=== PATIENT | male | born 1940 | race Caucasian/White ===

== ENCOUNTER → 2023-10-12 14:05 | Outpatient (REF) | payer OTHER, SELFPAY | LOC: RAD 14:05 | PROVIDERS: ATTENDING PHYSICIAN Internal Medicine Critical Care Medicine; FAMILY PHYSICIAN Family Medicine | DX: J18.9 Pneumonia, unspecified organism (principal) | CPT/HCPCS: 71046 ==

== ENCOUNTER → 2023-11-01 11:09 | Outpatient (REF) | payer OTHER, SELFPAY | LOC: RAD 11:09 | PROVIDERS: ATTENDING PHYSICIAN Surgery Vascular Surgery; FAMILY PHYSICIAN Family Medicine | DX: I65.23 Occlusion and stenosis of bilateral carotid arteries (principal) | CPT/HCPCS: 93880 ==

== ENCOUNTER 2023-11-24 15:01 | Inpatient (IN) | payer OTHER, SELFPAY ==
[2023-11-08 13:19] VITALS: BMI 26.1
[2023-11-08 13:59] LABS: % Basophils 0.3 % (0-2); % Eosinophils 1.3 % (0-6); % Immature Granulocytes 0.2 % (0-0.5); % Lymphocytes 16.1 % (20.5-51.1); % Monocytes 7.4 % (1.7-9.3); % Neutrophils 74.7 % (42.2-75.2); Absolute Eosinophils 0.1 10^3/uL (0-0.7); Absolute Monocytes 0.4 10^3/uL (0.1-0.6); Absolute Neutrophils 4.5 10^3/uL (1.4-6.5); Hematocrit 39.1 % (39.0-52.0); Hemoglobin 13.1 g/dL (13.0-18.0); Mean Corp Hgb Conc. 33.5 g/dL (33.0-37.0); Mean Corpuscular Hgb 31.8 pg (27.0-31.0); Mean Corpuscular Volume 94.9 fL (80.0-94.0); Mean Platelet Volume 9.7 fL (7.4-10.4); Nucleated Red Blood Cells % 0 % (-); Platelet Count 180 10^3/uL (130-400); Red Blood Cell Count 4.12 10^6/uL (4.70-6.10)
[2023-11-08 14:11] LABS: ALT (SGPT) 38 U/L (0-50); AST (SGOT) 36 U/L (17-59); Albumin 4.9 g/dl (3.5-5.0); Alkaline Phosphatase 98 U/L (38-126); Blood Urea Nitrogen 19 mg/dl (9-20); Carbon Dioxide 26 mmol/L (22-30); Chloride 104 mmol/L (98-107); Estimated Creatinine Clearance 56 ml/min; Glucose 97 mg/dl (70-99); Potassium 4.3 mmol/L (3.5-5.1); Sodium 137 mmol/L (135-145); Total Bilirubin 1.7 mg/dl (0.2-1.3); Total Protein 7.3 g/dl (6.3-8.2); eGFR > 60.00
[2023-11-08 14:31] LABS: INR 1.11; PT 14.1 Sec (11.4-14.6)
[2023-11-24 09:06] VITALS: BMI 26.5
[2023-11-24 09:33] VITALS: BP 147/94
[2023-11-24] MEDS: ELIQUIS 5 MG PO ×2 (11:28→20:28)
--- NOTE | 2023-11-24 12:21 | HPS.HSE ---
Addendum entered and electronically signed by Alecia Mendoza MD 11/24/23 15:25:
I saw and examined the patient.
The MANAGER IT TRAINING or PA's note was reviewed and I agree with the note.
Comment:
83M ext hx including HTN, HLD, COPD PVD, status post PRABHJOT and LICA stent at [facility] 2007, right subclavian stenosis, carotid stenosis, chronic lower back pain, hypothyroidism, head and neck/laryngeal cancer with laryngectomy/trach/stoma, claustrophobia,
right retinal vein thrombosis/branch retinal artery occlusion 2013, former smoker, vitamin D deficiency, anxiety aflutter/A-fib presented for elective ablation, canceled per anesthesia assessment high risk history of laryngeal CA/laryngectomy, stoma
anatomy. �Patient was subsequently admitted to hospitalist service with Cardiology plans for amiodarone load and possible cardioversion on 11/26/2023. �Denied current headache, chest pain, fever, chills, and abdomen pain.� Reported exertional
dyspnea palpitations chronic cough. VSS
Physical Exam
General: No pallor, cyanosis, or jaundice.
HEENT: Throat clear. PERRLA Normocephalic atraumatic stoma present
NECK: Supple. No JVD Carotid Bruits
RESPIRATORY: Lungs clear to auscultation. No crackles wheezes stridor
CVS: S1, S2 normal. RRR.� No murmur, rub or gallop.
ABDOMEN: Soft, non-tender. No distension. BS+/normal.
EXTREMITIES: No peripheral cyanosis or edema.
EXHIBITION DESIGNER: AOx3. No focal deficits.� Nausea, vomiting, diarrhea, urinary symptoms. Reports exertional dyspnea and palpitations.
#Afib
#COPD hx laryngeal ca laryngectomy/tracheostomy/stoma/voic device
#exertional dyspnea
IVU admit
Amiodarone load as per Cardio
Cont Eliquis
Tentative plan for Cardioversion Fri
Pulm Cardio Eval
PT/OT eval
Original Note:
Family Physician
-
Family Physician: Yao Nguyen Jr.
Chief Complaint
-
A-fib a flutter was due for cardioversion today
History of Present Illness
83-year-old male who was due for a flutter/A-fib ablation today but was not cleared by anesthesia due to history of laryngeal CA/laryngectomy, stoma. Cardiology to admit for amiodarone load with plan of possible cardioversion on 11/26/2023.
Patient denies any current headache, chest pain, palpitations, shortness of breath, cough, fever, chills, abdominal pain, nausea, vomiting, diarrhea, urinary symptoms
He has PMH persistent A-fib/a flutter, HTN, HLD, COPD PVD ,status post PRABHJOT and LICA stent at [facility] 2007, right subclavian stenosis, carotid stenosis, chronic lower back pain, hypothyroidism, head and neck/laryngeal cancer with
laryngectomy/trach/stoma, claustrophobia, right retinal vein thrombosis/branch retinal artery occlusion 2013, former smoker, pneumonia July 2023, vitamin D deficiency, anxiety
Medical History
Past Medical History
Past Medical History: Reports Other (a)
Additional Past Medical History:
atrial fibrillation/a flutter on Eliquis
coronary disease
laryngeal cancer with laryngectomy/tracheostomy/stoma site/voice device
COPD
former smoker
peripheral arterial disease
carotid artery stenosis
hypothyroidism
chronic back pain
hyperlipidemia
insomnia
Anxiety
Vitamin D deficiency
ight retinal vein thrombosis/branch retinal artery occlusion 2013
Past Surgical History: Reports Other
Additional Past Surgical History:
laryngeal cancer with laryngectomy/tracheostomy/stoma site/voice device
status post PRABHJOT and LICA stent at [facility] 2007
ight retinal vein thrombosis/branch retinal artery occlusion 2013
Social History
Tobacco: Former Smoker
Alcohol: None
Drug: None
Personal:
Living: With Family ( [place])
Employment: Retired
Family History
Family History: CAD (Mother and father) and Other (Mother alcohol abuse of cirrhosis)
Allergies / Home Medications
Allergies reflects when Allergies were last updated in [facility].
Home Medications with original date entered in [facility]
Allergy/Medication List:
Allergies
Allergy/AdvReac Type Severity Reaction Status Date / Time
levofloxacin [From Levaquin] Allergy Rash Verified 11/24/23 09:02
penicillin G Allergy Rash - Verified 11/24/23 09:02
tolerated
cefepime
06/2023
Home Medications
levothyroxine 100 mcg tablet 100 mcg PO DAILY AT 0700 Thyroid 08/31/14
guaifenesin 400 mg tablet 400 mg PO QID Congestion 12/30/16
tramadol 50 mg tablet 50 mg PO Q6H Pain 06/14/20
atorvastatin 80 mg tablet 80 mg PO DAILY #30 tabs 06/15/20
therapeutic multivitamin 10 ml PO DAILY Supplement 05/20/23
cholecalciferol (vitamin D3) 125 mcg (5,000 unit) tablet (Vitamin D3) 125 mcg PO Q48H Supplement 06/24/23
metoprolol tartrate 25 mg tablet 12.5 mg (1/2 x 25 mg) PO BID #30 tabs 06/30/23
acetaminophen 325 mg tablet (Tylenol) 650 mg PO BID 08/09/23
ferrous sulfate 325 mg (65 mg iron) tablet (iron) 325 mg PO DAILY Supplement 08/09/23
zolpidem 10 mg tablet (Ambien) 10 mg PO HS Sleep 08/09/23
albuterol sulfate 2.5 mg/3 mL (0.083 %) solution for nebulization 2.5 mg (3 mL) inhalation QID PRN bronchospasm #90 mL 08/13/23
apixaban 5 mg tablet (Eliquis) 5 mg PO BID Pain #60 tabs 08/13/23
docusate sodium 100 mg capsule (Colace) 100 mg PO PRN PRN constipation 08/26/23
diazepam 10 mg tablet (Valium) 10 mg PO PRN PRN Anxiety 11/03/23
Review of Systems
-
History Source: Patient and Family ( [place] and daughter at bedside)
A 12 point ROS was completed and negative except as noted: Yes
Constitutional: Denies Fever, Fatigue or Chills
EENT: Denies Sore Throat or Runny Nose
Respiratory: Denies Cough or Trouble Breathing
Cardiac: Denies Chest Pain, Diaphoresis, Palpitations or Syncope
Abdomen/GI: Denies Abdominal Pain, Nausea, Vomiting, Diarrhea, Constipated, Bloody Stools or Black Stools
: Denies Dysuria, Frequency, Flank Pain, Incontinence, Difficulty Voiding or Urgency
Musculoskeletal: Denies Joint Pain or Edema
Skin: Denies Itching or Rash
Neurological: Denies Dizzy, Headache or Weakness
Endocrine: Reports No Symptoms
Hematologic/Lymphatic: Reports No Symptoms
Psych: Reports Calm
Physical Exam
Vital Signs
Vital Signs
Temp Pulse Resp BP Pulse Ox
98.0 F 78 20 147/94 96
11/24/23 09:06 11/24/23 09:33 11/24/23 09:33 11/24/23 09:33 11/24/23 09:33
Physical Exam
General: Comfortable and Conversant; No Pain, Fever or Chills
HEENT: NormoCephalic, Anicteric, Moist mucous membranes, PERRLA, [place] Conjunctivae, No Ptosis and Other (Chronic open stoma site uses voice device to speak)
Respiratory: Clear; No Wheezes, Rales or Rhonchi
Cardiac: S1/S2 and Irregular Rhythm (A-fib/a flutter heart rate 82 bpm on monitor); No Murmur, Rub, Gallop or Peripheral Edema
Breast: Deferred by me
GI: Soft, Non Tender, Non Distended, Normal Bowel Sounds and No Hepatosplenomegaly
Rectal: Deferred by Provider
Genito-urinary: Deferred by me
Musculoskeletal: No Clubbing, No Cyanosis and No Edema
Skin: Warm and Dry; No Rash or Jaundice
Neuro: AO x 3, No Motor Deficits, Nonfocal/grossly intact, Cranial Nerves Intact and No Sensory Deficits; No Slurred Speech, Facial Droop or Tremors
Psych: Calm
Laboratory Results
-
11/08/23 13:41
11/08/23 13:41
Laboratory Results
PT 14.1 Sec (11.4-14.6) 11/08/23 13:37
INR 1.11 11/08/23 13:37
Total Bilirubin 1.7 mg/dl (0.2-1.3) H 11/08/23 13:41
AST 36 U/L (17-59) 11/08/23 13:41
ALT 38 U/L (0-50) 11/08/23 13:41
Alkaline Phosphatase 98 U/L (38-126) 11/08/23 13:41
Impression/Plan
-
Impression/plan:
Admit to IVU
#Persistent A-fib/a flutter
Was due for AV ablation today 11/24/2023 not cleared by anesthesia
-Plan for amiodarone load 400 mg 3 times daily per
-possible cardioversion Wednesday11/26/23
hold current BB due to amiodarone loading
-Consult [facility] cardiology
-Check CBC, CMP,mg, tsh with free t4
-Resume Eliquis 5 mg twice daily
EKG a flutter with AV block 71 bpm, QTc [address] chest preablation: Superior segment right lower lobe accessory pulmonary vein short segment, channel of the left superior and inferior pulmonary veins
#Head and neck cancer, laryngeal cancer with laryngectomy
#Hx stoma/hand-held electronic voice device
-Consult pulmonary
-Continue albuterol inhalation 4 times daily
#HTN�benign
147/94
Monitor BP
hold current BB due to amiodarone loading
#HLD
-Continue atorvastatin
#Carotid stenosis
#Post PRABHJOT/LICA stent [id number]
#Hypothyroidism status post thyroidectomy
-Continue levothyroxine 100 mcg p.o. daily
-Check TSH with free T4
#Chronic back pain
-Continue tramadol
#Iron deficiency
Continue Feosol with Colace
#Anxiety
Continue Valium 10 mg p.o. as needed
#Vitamin D deficiency
-Continue vitamin D supplement
#PVD
#Insomnia
-Continue Ambien
Other PMH:
Right retinal vein thrombosis with retinal artery occlusion occlusion 2013
Left foot cellulitis left/left fifth toe ulceration 05/20/2023
DVT prophylaxis
Continue Eliquis
Full code
--- NOTE | 2023-11-24 12:34 | CON.CAR ---
Consultation
Consultation Request
Date/Time Consultation Requested: 11/24/2023, 1200p
Date/Time Consultation Performed: 11/24/2023, 1230p
Requesting Provider: Dr Mendoza
Performing Provider: Paco Segura DO
Reason for Consultation: AF, Amiodarone Load
Medical History
-
Chief Complaint: AF, fatigue
History of Present Illness:
Mr. Shin is a very pleasant 83-year-old male with a past medical history significant for laryngeal carcinoma status post laryngectomy and tracheostomy with chemotherapy and radiation with chronic dysphagia/swallowing issues, carotid artery disease,
CVA 2020, peripheral vascular disease, hyperlipidemia, chronic pain syndrome, COPD is former tobacco user, hypothyroidism status post partial thyroidectomy, GERD, persistent atrial fibrillation who initially presented for elective pulmonary vein
isolation however due to concern by anesthesia regarding airway, procedure was deferred and plan for amiodarone drug admission for pentecostal and maintenance of sinus rhythm. Patient reports that he has not missed any doses of his oral
anticoagulation in the last 30 days and notes that he is did not take his Eliquis this morning as was instructed but did receive it in the holding area after noticed that the procedure was canceled. Patient denies any chest pain, shortness of
breath, lightheadedness, dizziness, near-syncope, syncope, PND, orthopnea, edema, or weakness. Uses a speech device due to his open trachea stoma.
Past Medical History
Past Medical History: Other (Noted in HPI)
Past Surgical History: Orthopedic (Spinal surgery) and Other (Noted in HPI)
Social History
Tobacco: Former Smoker
Alcohol: None
Drug: None
Personal:
Living: With Family
Family History
Family History: Reviewed & Not Pertinent
Allergies / Home Medications
Allergy/AdvReac Type Severity Reaction Status Date / Time
levofloxacin [From Levaquin] Allergy Rash Verified 11/24/23 09:02
penicillin G Allergy Rash - Verified 11/24/23 09:02
tolerated
cefepime
06/2023
�Medication �Instructions �Recorded �Confirmed �Type
levothyroxine 100 mcg tablet 100 mcg PO DAILY AT 0700 Thyroid 08/31/14 11/24/23 History
guaifenesin 400 mg tablet 400 mg PO QID Congestion 12/30/16 11/24/23 History
tramadol 50 mg tablet 50 mg PO Q6H Pain 06/14/20 11/24/23 History
atorvastatin 80 mg tablet 80 mg PO DAILY #30 tabs 06/15/20 11/24/23 Rx
therapeutic multivitamin 10 ml PO DAILY Supplement 05/20/23 11/24/23 History
cholecalciferol (vitamin D3) 125 125 mcg PO Q48H Supplement 06/24/23 11/24/23 History
mcg (5,000 unit) tablet (Vitamin
D3)
metoprolol tartrate 25 mg tablet 12.5 mg (1/2 x 25 mg) PO BID #30 06/30/23 11/24/23 Rx
tabs
acetaminophen 325 mg tablet 650 mg PO BID 08/09/23 11/24/23 History
(Tylenol)
ferrous sulfate 325 mg (65 mg 325 mg PO DAILY Supplement 08/09/23 11/24/23 History
iron) tablet (iron)
zolpidem 10 mg tablet (Ambien) 10 mg PO HS Sleep 08/09/23 11/24/23 History
albuterol sulfate 2.5 mg/3 mL 2.5 mg (3 mL) inhalation QID PRN 08/13/23 11/24/23 Rx
(0.083 %) solution for nebulization bronchospasm #90 mL
apixaban 5 mg tablet (Eliquis) 5 mg PO BID Pain #60 tabs 08/13/23 11/24/23 Rx
docusate sodium 100 mg capsule 100 mg PO PRN PRN constipation 08/26/23 11/24/23 History
(Colace)
diazepam 10 mg tablet (Valium) 10 mg PO PRN PRN Anxiety 11/03/23 11/24/23 History
Review of Systems
-
History Source: Patient and Family
Constitutional: No Symptoms
EENT: No Symptoms
Respiratory: No Symptoms
Cardiac: Palpitations and Other (Fatigue)
Abdomen/GI: No Symptoms
: No Symptoms
Musculoskeletal: No Symptoms
Skin: No Symptoms
Neurological: No Symptoms
Endocrine: No Symptoms
Hematologic/Lymphatic: No Symptoms
Physical Exam
Vital Signs
Temp Pulse Resp BP Pulse Ox
98.0 F 78 20 147/94 96
11/24/23 09:06 11/24/23 09:33 11/24/23 09:33 11/24/23 09:33 11/24/23 09:33
Lab Results
11/08/23 13:41
11/08/23 13:41
Physical Exam
General: Well Developed, Well Nourished, No Apparent Distress and Comfortable
HEENT: Normocephalic, Anicteric, Moist Mucous Membranes and Tracheotomy (Open stoma well-healed)
Respiratory: Clear and Non Labored Respirations
Cardiac: Irregular Rhythm and Other (No murmur rub or gallop)
Breast: Deferred by me
GI: Soft, Non Tender and Non Distended
Rectal: Deferred by Provider
Musculoskeletal: No Clubbing, No Cyanosis and No Edema
Skin: Warm and Dry
Neuro: AO x 3 and Nonfocal/Grossly Intact
Psych: Calm
Impression / Plan
-
Primary vp integration: Dr. Hugh Day
Primary care physician: Dr. Yao Nguyen
Assessment:
*Atrial fibrillation, mildly symptomatic, likely persistent
- Status post cardioversion 08/2023 with early return to sinus rhythm
- On metoprolol for rate control
- On Eliquis 5 mg twice daily for stroke risk reduction
- No prior antiarrhythmic therapy or procedure
� Planned PFA PVI deferred due to high risk by anesthesia; patient does not have open airway from mouth to stoma and therefore stoma is only open airway additionally, patient reporting severe takeoff of stoma making intubation difficult
*Hypertension, stable
*Hypercholesterolemia, stable
*Cerebrovascular disease; 05/2020
*History of laryngeal carcinoma status post laryngectomy and tracheostomy with open stoma
- Increasing risk procedure due to patient reported dysphagia/difficulty swallowing
Recommendations:
� Plan to admit patient to hospitalist service and initiate amiodarone drug load
� Obtain EKG this morning
� Start 400 mg 3 times daily of amiodarone while inpatient with plan to taper on discharge; adjust dosing based on heart rate/QT
� Serial EKGs for QT monitoring; monitor on telemetry
� Goal potassium greater than 4, magnesium greater than 2
� Tentative plan for cardioversion on Wednesday
� Okay to hold beta-juju for now given heart rate
� Continue oral anticoagulation with Eliquis 5 mg twice daily
� Following initiation of amiodarone, recommend patient to obtain PFTs and an eye exam; please check liver function and thyroid function while inpatient for baseline
� Further recommendations to follow while inpatient
Case discussed with hospital service, nursing, anesthesiology, patient and family
Data Reviewed
-
EKG: Tracing Personally Visualized and interpreted and Report Reviewed by me
Medical Tests (Nuc Med, Echo etc): Report Reviewed by me
Labs: Labs Reviewed by me
Old Records: Reviewed
--- NOTE | 2023-11-24 13:55 | CON.PUL ---
Consultation
Consultation Request
Date/Time Consultation Requested: 11/24/23
Date/Time Consultation Performed: 11/24/23
Performing Provider: Danny
Reason for Consultation: COPD
Medical History
-
History of Present Illness:
Patient is a 83 year old M with extensive past history as noted below, aflutter/A-fib presenting to for elective ablation. During pre-operative eval, procedure was cancelled by anesthesia due to high risk given history of laryngeal
CA/laryngectomy, stoma anatomy. �Patient was subsequently admitted to hospitalist service with Cardiology plans for amiodarone load and possible cardioversion on 11/26/2023. �
He has no significant changes noted on his respiratory/pulmonary history. He is known to Dr Vera as an outpatient.
He is currently stable on RA.
Past Medical History
Past Medical History: Other (see list below)
Social History
Tobacco: Former Smoker
Alcohol: None
Drug: None
Family History
Family History: Reviewed & Not Pertinent
Allergies / Home Medications
Allergies
Allergy/AdvReac Type Severity Reaction Status Date / Time
levofloxacin [From Levaquin] Allergy Rash Verified 11/24/23 09:02
penicillin G Allergy Rash - Verified 11/24/23 09:02
tolerated
cefepime
06/2023
Home Medications
�Medication �Instructions �Recorded �Confirmed �Last Taken �Type
levothyroxine 100 mcg tablet 100 mcg PO DAILY AT 0700 Thyroid 08/31/14 11/24/23 11/23/23 08:00 History
guaifenesin 400 mg tablet 400 mg PO QID Congestion 12/30/16 11/24/23 11/23/23 22:00 History
tramadol 50 mg tablet 50 mg PO Q6H Pain 06/14/20 11/24/23 11/23/23 22:00 History
atorvastatin 80 mg tablet 80 mg PO DAILY #30 tabs 06/15/20 11/24/23 11/23/23 08:00 Rx
therapeutic multivitamin 10 ml PO DAILY Supplement 05/20/23 11/24/23 11/23/23 08:00 History
cholecalciferol (vitamin D3) 125 125 mcg PO Q48H Supplement 06/24/23 11/24/23 11/23/23 08:00 History
mcg (5,000 unit) tablet (Vitamin
D3)
metoprolol tartrate 25 mg tablet 12.5 mg (1/2 x 25 mg) PO BID #30 06/30/23 11/24/23 11/23/23 22:00 Rx
tabs
acetaminophen 325 mg tablet 650 mg PO BID 08/09/23 11/24/23 11/23/23 20:00 History
(Tylenol)
ferrous sulfate 325 mg (65 mg 325 mg PO DAILY Supplement 08/09/23 11/24/23 11/23/23 22:00 History
iron) tablet (iron)
zolpidem 10 mg tablet (Ambien) 10 mg PO HS Sleep 08/09/23 11/24/23 11/23/23 22:00 History
albuterol sulfate 2.5 mg/3 mL 2.5 mg (3 mL) inhalation QID PRN 08/13/23 11/24/23 11/24/23 05:00 Rx
(0.083 %) solution for nebulization bronchospasm #90 mL
apixaban 5 mg tablet (Eliquis) 5 mg PO BID Pain #60 tabs 08/13/23 11/24/23 11/23/23 22:00 Rx
docusate sodium 100 mg capsule 100 mg PO PRN PRN constipation 08/26/23 11/24/23 11/17/23 06:00 History
(Colace)
diazepam 10 mg tablet (Valium) 10 mg PO PRN PRN Anxiety 11/03/23 11/24/23 11/14/23 08:00 History
Review of Systems
-
History Source: Patient
All other systems: Negative unless noted
Vitals / Labs / Diagnostic Testing
Vital Signs
Temp Pulse Resp BP Pulse Ox
98.0 F 78 20 147/94 96
11/24/23 09:06 11/24/23 09:33 11/24/23 09:33 11/24/23 09:33 11/24/23 09:33
Diagnostic Testing:
Physical Exam
-
HEENT: Normocephalic, Anicteric, Moist Mucous Membranes and Other (stoma patent)
Cardiovascular: S1/S2 and Regular Rhythm
Respiratory: Clear and Non-Labored Respirations
GI: Soft, Non Distended and Non Tender
Neurology: Awake, Alert, Oriented, AO x 3 and No Motor Deficits
Skin: Warm, Dry and Good Color
General: Comfortable and Other (NAD)
Assessment
-
Patient is a 83 year old M with extensive past history as noted below, aflutter/A-fib presenting to for elective ablation. During pre-operative eval, procedure was cancelled by anesthesia due to high risk given history of laryngeal
CA/laryngectomy, stoma anatomy. �Patient was subsequently admitted to hospitalist service with Cardiology plans for amiodarone load and possible cardioversion on 11/26/2023. �
He has no significant changes noted on his respiratory/pulmonary history. He is currently stable on RA. We are consulted for pulmonary history.
Aborted atrial ablation scheduled 11/24/23
Tentative planning for amio load and CV
Aflutter/Afib
Conditions present prior to admission:
AFlutter, on apixaban
Hospitalization 05/20/23-left foot cellulitis
Laryngeal carcinoma status post laryngectomy/tracheostomy 1995-Dr. Orta
Thyroidectomy
COPD
Chronic recurrent hyponatremia
Recurrent bronchitis/PNA
Recurrent sinusitis s/p Sinus surgery 2007
History of hemoptysis August 2014
Chronic pain disorder
Hyperlipidemia
Bilateral carotid stenosis s/p R ICA and status post LICA stent-[facility] 2007
Hypothyroid
Former smoker [id number], quit 1992
Right subclavian stenosis
Insomnia
Right retinal vein thrombosis 2013
PAD
GERD
Trigger fingers left hand
L shoulder prosthesis
Shingles 2004
Gilbert's syndrome
Vitamin D deficiency
History of Lyme disease
Lumbar stenosis s/p Multiple back injections
Plan
Comfortable on RA at time of visit
Offers no new complaints
Remains hemodyn stable since adm
COPD history
Not on home O2 or BDs
Has followed Dr Vera as OP
He would like to resume his home meds
Prior imaging reviewed, no new imaging
He has history of laryngectomy and open stoma
Stable on room air, phonates with speaking device
Continue chronic apixaban (AFlutter)
Cards following for tentative amio load and CV planning Wednesday
Preop eval with higher risk based on his anatomy
ENT consult would need to be obtained and given
Nothing new otherwise to add from our perspective
If complications arise with expectant management for Afib, please call us again
Will sign off and follow peripherally as needed
Diagnostic Data
CXR 10/12/23- Improving right lower lobe pneumonia.
CXR 08-09-23: c/w 06-27, new spine sign, corresponding to retrocardial infiltrate
CXRs - c/w 09 and 08 , considering differences in technique and posture apparently improved LLL infiltrate after interim worsening
Chest x-ray 09/11/21-NAD
Chest x-ray 12/08/22-NAD.
Chest x-ray 06/23/23-left lower lobe pneumonia.
Chest x-ray 06/24/23-left lower lobe pneumonia without change
V/Q 06-27-23: limited by artifacts (cannot raise arms), overall low prob
CT Chest 11/08/23- Severe coronary artery calcifications. No axillary, mediastinal, or hilar lymphadenopathy. The lungs are clear. No focal consolidation, pleural effusion, or pneumothorax. The trachea and central airways are patent. Left hepatic
lobe cyst. Chronic advanced degenerative changes of the spine. Mild compression fracture at the superior endplate of L1, age indeterminate but likely chronic. Severe osteoarthrosis of the right glenohumeral joint. Metallic streak artifact from left
total shoulder arthroplasty hardware.
Brain MRI 09/26/19-cerebral atrophy, Chronic small vessel ischemia suspected and also possible multiple sclerosis, Lyme disease or vasculitis, substantial inflammatory findings left frontal sinus and ethmoid sinuses and chronic occlusion right
internal carotid artery
Lower extremity ultrasound 01/07/22-no evidence for DVT
Lower extremity ultrasound 06/24/23-no evidence for DVT bilaterally.
Renal ultrasound 06/25/23-no hydronephrosis.
Echocardiogram 06/20/14--normal left ventricular size and function-EF 50-55%, diastolic dysfunction noted and no significant valvular disease
Echocardiogram 06/15/20-EF 55-60%, mild focal aortic valve calcification, no change from 2013.
Echocardiogram 12/08/22-EF 60%, no mitral regurgitation, PA systolic 38, no change since 05/2020
ECHO 06/25/23- Normal LV size and systolic with LV ejection fraction estimated by volumetric assessment 55-60%. Enlarged right ventricle with mildly reduced RV systolic function. Biatrial dilatation. Trace-mild mitral regurgitation. Mild tricuspid
regurgitation. Aortic sclerosis without stenosis or aortic regurgitation. Sinus of Valsalva 3.7 cm, sinotubular junction 3.5 cm, proximal ascending aorta 3.4 cm. The IVC is mildly dilated. Interatrial septum is intact with no evidence of shunting
by color flow Doppler. No pericardial effusion. Compared to prior study dated 12/08/2022, LV systolic function remains preserved. Right atrium and right ventricle now mildly dilated with slightly reduced RV systolic function. Tricuspid valve
regurgitation remains mild. Estimated pulmonary artery pressure similar, 38 mmHg assuming a right atrial pressure of 10 mmHg. IVC is now dilated.
--- NOTE | 2023-11-24 14:15 | W.PN.UPDATE ---
Update Note
Progress Note Update
billing purposes
[2023-11-24 14:49] VITALS: BP 147/97
--- NOTE | 2023-11-24 15:18 | PTCARENOTE ---
Pt received from [facility]. Pt was scheduled for Afib/Aflutter ablation today but was not cleared by anesthesia due to hx of laryngeal ca/laryngectomy & stoma. Now being admitted for PO amio load and possible cardioversion later this week. Pt AAOx3.
Afib/Aflutter on monitoring coordinator 80s. Uses speaking device with open stoma. Assessment documented. Pt without complaint at this time. Family at bedside.
--- NOTE | 2023-11-24 16:22 | CM ---
CM following for DC planning needs.
Met w/ patient, spouse and marco antoniorArley Rico at bedside to complete initial assessment.
Pt. resides w/ spouse in a private, 2 story home. He is functionally indep. without use of any assisted device.
Pt. has Rx plan and uses [facility] in [place] for prescription needs.
Goal is for home once medically stable without needs.
CM to follow.
[2023-11-24 16:24] LABS: % Basophils 0.3 % (0-2); % Eosinophils 0.9 % (0-6); % Immature Granulocytes 0.3 % (0-0.5); % Lymphocytes 12.1 % (20.5-51.1); % Monocytes 8.3 % (1.7-9.3); % Neutrophils 78.1 % (42.2-75.2); Absolute Eosinophils 0.1 10^3/uL (0-0.7); Absolute Lymphocytes 0.8 10^3/uL (1.2-3.4); Absolute Monocytes 0.5 10^3/uL (0.1-0.6); Hematocrit 35.7 % (39.0-52.0); Hemoglobin 12.2 g/dL (13.0-18.0); Mean Corp Hgb Conc. 34.2 g/dL (33.0-37.0); Mean Corpuscular Volume 93.7 fL (80.0-94.0); Nucleated Red Blood Cells % 0 % (-); Platelet Count 201 10^3/uL (130-400); Red Blood Cell Count 3.81 10^6/uL (4.70-6.10); Red Cell Dist. Width 12.8 % (11.5-14.5); White Blood Cell Count 6.4 10^3/uL (4.8-10.8)
[2023-11-24 16:36] VITALS: BP 148/97
[2023-11-24 16:39] LABS: ALT (SGPT) 33 U/L (0-50); AST (SGOT) 32 U/L (17-59); Albumin 4.6 g/dl (3.5-5.0); Alkaline Phosphatase 68 U/L (38-126); Blood Urea Nitrogen 16 mg/dl (9-20); Calcium 9.2 mg/dl (8.4-10.2); Carbon Dioxide 25 mmol/L (22-30); Chloride 103 mmol/L (98-107); Estimated Creatinine Clearance 64 ml/min; Glucose 101 mg/dl (70-99); Sodium 139 mmol/L (135-145); Total Bilirubin 1.3 mg/dl (0.2-1.3); Total Protein 6.8 g/dl (6.3-8.2); eGFR > 60.00
[2023-11-24] MEDS: PACERONE 400 MG PO ×2 (16:39→22:27)
[2023-11-24] MEDS: ULTRAM 50 MG PO ×2 (16:39→22:26)
[2023-11-24] MEDS: ROBITUSSIN 400 MG PO ×2 (17:02→22:27)
[2023-11-24] MEDS: VENTOLIN NEBULES 2.5 MG INH (19:37)
--- NOTE | 2023-11-24 20:12 | RESPNOTE ---
Pt admitted to IVU. Pt has hx of Radical Neck Surgery w/ Laryngectomy. Placed Emergency airway box at bedside and notice of Laryngectomy at FOB and Emergency Algorithm at HOB.
[2023-11-24 20:28] VITALS: BP 126/88
[2023-11-24] MEDS: TYLENOL 650 MG PO (20:28)
--- NOTE | 2023-11-24 21:45 | PTCARENOTE ---
Received pt at handoff. AOx3. Tele- Afib/flutter. HR 70-80s. Assessment noted as documented. Offers no c/o at this time. Using speaking device w/ open stoma. Takes meds crushed w/ hot water. Currently OOB in chair; call jorge l w/in reach.
[2023-11-24 22:25] VITALS: BP 150/91
[2023-11-24] MEDS: AMBIEN 10 MG PO (22:27)
[2023-11-25] VITALS (13 sets, daily range): BP systolic 93–146; BP diastolic 62–129; PULSE 72–75; O2SAT 99–100
[2023-11-25 03:55] LABS: % Basophils 0.2 % (0-2); % Eosinophils 3.5 % (0-6); % Immature Granulocytes 0.2 % (0-0.5); % Lymphocytes 17.7 % (20.5-51.1); % Monocytes 8.7 % (1.7-9.3); % Neutrophils 69.7 % (42.2-75.2); Absolute Eosinophils 0.2 10^3/uL (0-0.7); Absolute Lymphocytes 1.1 10^3/uL (1.2-3.4); Absolute Monocytes 0.5 10^3/uL (0.1-0.6); Absolute Neutrophils 4.2 10^3/uL (1.4-6.5); Hematocrit 34.5 % (39.0-52.0); Hemoglobin 11.6 g/dL (13.0-18.0); Mean Corp Hgb Conc. 33.6 g/dL (33.0-37.0); Mean Corpuscular Hgb 31.5 pg (27.0-31.0); Mean Corpuscular Volume 93.8 fL (80.0-94.0); Mean Platelet Volume 10.1 fL (7.4-10.4); Nucleated Red Blood Cells % 0 % (-); Platelet Count 169 10^3/uL (130-400); Red Blood Cell Count 3.68 10^6/uL (4.70-6.10); Red Cell Dist. Width 12.8 % (11.5-14.5)
[2023-11-25 04:11] LABS: Blood Urea Nitrogen 19 mg/dl (9-20); Calcium 9.1 mg/dl (8.4-10.2); Carbon Dioxide 24 mmol/L (22-30); Chloride 103 mmol/L (98-107); Estimated Creatinine Clearance 56 ml/min; Glucose 99 mg/dl (70-99); Sodium 136 mmol/L (135-145); eGFR > 60.00
[2023-11-25] MEDS: ULTRAM 50 MG PO ×4 (04:26→22:08)
[2023-11-25] MEDS: SYNTHROID 100 MCG PO (05:42)
[2023-11-25] MEDS: VENTOLIN NEBULES 2.5 MG INH ×3 (07:47→19:30)
[2023-11-25] MEDS: TYLENOL 650 MG PO ×2 (08:16→20:25)
[2023-11-25] MEDS: PACERONE 400 MG PO ×3 (08:16→22:08)
[2023-11-25] MEDS: THERAGRAN 1 TABLET PO (08:16)
[2023-11-25] MEDS: FEOSOL 325 MG PO (08:16)
[2023-11-25] MEDS: LIPITOR 80 MG PO (08:16)
[2023-11-25] MEDS: ROBITUSSIN 400 MG PO ×4 (08:16→22:08)
[2023-11-25] MEDS: ELIQUIS 5 MG PO ×2 (08:16→20:24)
--- NOTE | 2023-11-25 08:16 | W.PN.CARDCBS ---
Addendum entered and electronically signed by Paco Segura DO 11/25/23 13:14:
I saw and examined the patient.
The Blind Slat Stapling Machine Operator's note was reviewed and I agree with the note.
Comment:
GEN: No distress, awake, alert, oriented x3
HEENT: anicteric, mmm, tracheotomy stoma open
LUNGS: CTA b /l, no wheezes/rales
CV: Irre, S1/S2, no murmur
EXT: No clubbing, cyanosis, or edema
NEURO: Gross non-focal
SKIN: Warm, dry, no rash
Doing well on amiodarone; in AF; continue QT/QTc monitoring
Continue OAC
Tentative DCCV 11/25
Original Note:
Today's Communication / Plan
-
Continue amiodarone load
Continue Eliquis 5mg BID
If remains in atrial flutter in AM, plan for CV 11/25.
Impression / Plan
-
PCP:Dr. Yao Nguyen
Distribution Center Administrator: Dr. Day
Impression:
Persistent atrial fibrillation
Typical atrial flutter
Chronic Eliquis anticoagulation
Hypertension
Hypercholesterolemia
h/o CVA 05/2020
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
PVD
COPD
Hypothyroidism
GERD
Echo 06/25/2023: EF 55-60%, trace-mild MR, aortic sclerosis without stenosis, sinus of Valsalva 3.7cm, sinotubular junction 3.5cm, proximal ascending aorta 3.4cm
Plan:
-Presented for planned PVI, however procedure was cancelled by anesthesia due to high risk as stoma is the only open airway w/ difficult intubation due to severe takeoff of stoma
-Feeling well this AM, no complaints overnight.
-As procedure was cancelled, plan is to load w/ amiodarone. Remains in rate controlled in atrial flutter. Metoprolol on hold.
-Continue Eliquis 5mg BID.
-Loading w/ amiodarone 400mg TID. 1.2g load thus far. QTc stable this AM at 434ms.
-Continue to follow EKG for QT monitoring
-K and mag stable.
-If remains in atrial flutter, plan is for CV on Wednesday, 11/25.
-Following initiation of amiodarone, recommend patient to obtain PFTs and an eye exam. LFTs wnl. Will check TSH as inpatient for baseline.
HPI:Mr. Shin is a very pleasant 83-year-old male with a past medical history significant for laryngeal carcinoma status post laryngectomy and tracheostomy with chemotherapy and radiation with chronic dysphagia/swallowing issues, carotid artery
disease, CVA 2019, peripheral vascular disease, hyperlipidemia, chronic pain syndrome, COPD is former tobacco user, hypothyroidism status post partial thyroidectomy, GERD, persistent atrial fibrillation who initially presented for elective pulmonary
vein isolation however due to concern by anesthesia regarding airway, procedure was deferred and plan for amiodarone drug admission for gnosticism and maintenance of sinus rhythm. Patient reports that he has not missed any doses of his oral
anticoagulation in the last 30 days and notes that he is did not take his Eliquis this morning as was instructed but did receive it in the holding area after noticed that the procedure was canceled. Patient denies any chest pain, shortness of
breath, lightheadedness, dizziness, near-syncope, syncope, PND, orthopnea, edema, or weakness. Uses a speech device due to his open trachea stoma.
Progress Note - Distribution Center Administrator
Subjective
Date of Service: November 25, 2023
Feeling well. Remains in atrial flutter.
Objective
Labs:
11/25/23 03:22
11/25/23 03:21
Labs
Hgb 11.6 g/dL (13.0-18.0) L 11/25/23 03:22
Hct 34.5 % (39.0-52.0) L 11/25/23 03:22
Plt Count 169 10^3/uL (130-400) 11/25/23 03:22
PT 14.1 Sec (11.4-14.6) 11/08/23 13:37
INR 1.11 11/08/23 13:37
Sodium 136 mmol/L (135-145) 11/25/23 03:21
Potassium 4.0 mmol/L (3.5-5.1) 11/25/23 03:21
BUN 19 mg/dl (9-20) 11/25/23 03:21
Creatinine 0.8 mg/dL (0.7-1.3) 11/25/23 03:21
Glucose 99 mg/dl (70-99) 11/25/23 03:21
Vital Signs and I&O:
Vital Signs
Temp Pulse Resp BP Pulse Ox
98.1 F 68 16 103/84 97
11/25/23 07:54 11/25/23 07:53 11/25/23 07:54 11/25/23 07:54 11/25/23 07:54
Vital Signs
Temp Pulse Resp BP Pulse Ox
98.1 F 68 16 103/84 97
11/25/23 07:54 11/25/23 07:53 11/25/23 07:54 11/25/23 07:54 11/25/23 07:54
Intake & Output
11/23/23 11/24/23 11/25/23 11/26/23
06:59 06:59 06:59 06:59
Output Total 400 / 400
Balance -400 / -400
Physical Exam
Physical Exam
GEN: No distress, awake, alert, oriented x3
HEENT: anicteric, mmm, tracheotomy stoma open
LUNGS: CTA b /l, no wheezes/rales
CV: Irre, S1/S2, no murmur
EXT: No clubbing, cyanosis, or edema
NEURO: Gross non-focal
SKIN: Warm, dry, no rash
[2023-11-25] MEDS: FLUSH (NSS) 1 FLUSH IV (08:17)
[2023-11-25] MEDS: VITAMIN D3 (cholecalciferol) 125 MCG PO (08:27)
[2023-11-25 09:45] LABS: TSH Reflex To Free T4 3.94 uIU/ml (0.47-4.68)
--- NOTE | 2023-11-25 15:00 | W.PN.HOSP.TC ---
Today's Communication/Plan
-
see plan
Assessment / Plan
Assessment / Plan
Assessment:
A-flutter/Afib
- Aborted atrial ablation scheduled 11/24/23
- currently on Amio load with plan for DCCV tomorrow. Monitoring QTcs
- BB on hold
- continue Eliquis
- watch K, Mag
Laryngeal carcinoma status post laryngectomy/tracheostomy 1995
- Dr. Orta
HX of Thyroidectomy with Hypothyroidism
- continue levothyroxine
COPD
Former smoker [id number], quit 1992
Chronic recurrent hyponatremia
Recurrent bronchitis/PNA
Recurrent sinusitis s/p Sinus surgery 2007
Chronic pain disorder
- opiate dependance on Tramadol
Hyperlipidemia
- Statin
Bilateral carotid stenosis s/p R ICA and status post LICA stent-HUP 2007
Right subclavian stenosis
Insomnia - on Ambien
Right retinal vein thrombosis 2013
PAD
GERD
Trigger fingers left hand
L shoulder prosthesis
Shingles 2004
Gilbert's syndrome
Vitamin D deficiency
History of Lyme disease
Lumbar stenosis s/p Multiple back injections
DVT ppx: Eliquis
Code: Full
Anticipated Discharge: 24 - 48 hours
Subjective/Interval History
-
Date of Service: November 25, 2023
feels well
remains in flutter rhythm
Objective Data
-
Labs:
Laboratory Results
11/25/23 11/25/23
03:21 03:22
WBC 6.0
Hgb 11.6 L
Hct 34.5 L
Plt Count 169
Sodium 136
Potassium 4.0
Chloride 103
Carbon Dioxide 24
BUN 19
Creatinine 0.8
Glucose 99
Calcium 9.1
Vital Signs:
Vital Signs
Temp Pulse Resp BP Pulse Ox
98.6 F 67 20 103/68 97
11/25/23 14:59 11/25/23 14:49 11/25/23 14:59 11/25/23 14:49 11/25/23 14:59
I&O
11/24/23 11/25/23 11/26/23
06:59 06:59 06:59
Intake Total 480 / 480
Output Total 400 / 400
Balance -400 / -400 480 / 480
Physical Exam
-
General: No Apparent Distress
HEENT: Normocephalic and Atraumatic
Respiratory: Negative Wheezes
Cardiac: Irregular Rhythm
GI: Soft and Nontender
Musculoskeletal: No Edema
Neuro: AO x 3
Hematologic / Lymphatic: No Lymphadenopathy
Psych: Calm
Data Reviewed
-
Total Time Spent with Patient (in minutes): 41
Labs: Labs Reviewed by me
--- NOTE | 2023-11-25 16:35 | PTCARENOTE ---
The patient has been oob and ambulating in the room all shift. His vital signs remain stable. Afib/aflutter noted on the monitor. He has had no complaints. He is anticipating being cardioverted tomorrow.
--- NOTE | 2023-11-25 20:48 | PTCARENOTE ---
AOx3. Assessment completed as documented. tele- afib/flutter. Ambulating around room w/ steady gait. Offers no complaints at this time. Aware of NPO status for CV tomorrow.
[2023-11-25] MEDS: AMBIEN 10 MG PO (22:08)
[2023-11-26] VITALS (8 sets, daily range): BP systolic 86–136; BP diastolic 62–112
[2023-11-26] MEDS: ULTRAM 50 MG PO ×4 (04:15→22:32)
[2023-11-26 04:39] LABS: % Basophils 0.2 % (0-2); % Eosinophils 3.6 % (0-6); % Immature Granulocytes 0.3 % (0-0.5); % Lymphocytes 17.3 % (20.5-51.1); % Monocytes 9.2 % (1.7-9.3); % Neutrophils 69.4 % (42.2-75.2); Absolute Eosinophils 0.2 10^3/uL (0-0.7); Absolute Monocytes 0.5 10^3/uL (0.1-0.6); Absolute Neutrophils 4.1 10^3/uL (1.4-6.5); Hematocrit 35.9 % (39.0-52.0); Hemoglobin 12.1 g/dL (13.0-18.0); Mean Corp Hgb Conc. 33.7 g/dL (33.0-37.0); Mean Corpuscular Hgb 31.8 pg (27.0-31.0); Mean Corpuscular Volume 94.5 fL (80.0-94.0); Mean Platelet Volume 9.7 fL (7.4-10.4); Nucleated Red Blood Cells % 0 % (-); Platelet Count 186 10^3/uL (130-400); Red Cell Dist. Width 12.9 % (11.5-14.5); White Blood Cell Count 5.9 10^3/uL (4.8-10.8)
[2023-11-26 05:02] LABS: Blood Urea Nitrogen 16 mg/dl (9-20); Calcium 9.1 mg/dl (8.4-10.2); Carbon Dioxide 24 mmol/L (22-30); Chloride 100 mmol/L (98-107); Estimated Creatinine Clearance 50 ml/min; Glucose 104 mg/dl (70-99); Potassium 4.6 mmol/L (3.5-5.1); Sodium 135 mmol/L (135-145); eGFR > 60.00
[2023-11-26] MEDS: SYNTHROID 100 MCG PO (06:11)
[2023-11-26] MEDS: VENTOLIN NEBULES 2.5 MG INH ×3 (07:21→19:52)
--- NOTE | 2023-11-26 07:26 | W.PN.CARDCBS ---
Addendum entered and electronically signed by Eh Anguiano MD 11/26/23 09:55:
I saw and examined the patient.
The Stock Counter's note was reviewed and I agree with the note.
Comment:
GEN: No distress, awake, Ox3
HEENT: supple, anicteric, mmm, +trach
LUNGS: CTA, no wheezes/rales
CV: Reg, S1/S2, 1/6 syst LSB, no murmur
ABD: soft, BS+, NT/ND
EXT: No edema
NEURO: Gross non-focal
SKIN: No rash
Plan:
CV back to sinus bradycardia with first degree AV block.
Hold Amio today and restart 200mg daily 11/26.
Cont Eliquis
Will reassess this afternoon regarding possible D/C
Original Note:
Today's Communication / Plan
-
Continue amiodarone 400mg TID while admitted
Continue Eliqus 5mg BID
For CV today
Follow up arranged
Impression / Plan
-
PCP:Dr. Yao Nguyen
Rim Technician: Dr. Day
Impression:
Persistent atrial fibrillation
Typical atrial flutter
Chronic Eliquis anticoagulation
Hypertension
Hypercholesterolemia
h/o CVA 05/2020
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
PVD
COPD
Hypothyroidism
GERD
Echo 06/25/2023: EF 55-60%, trace-mild MR, aortic sclerosis without stenosis, sinus of Valsalva 3.7cm, sinotubular junction 3.5cm, proximal ascending aorta 3.4cm
Plan:
-Presented for planned PVI 11/24/23, however procedure was cancelled by anesthesia due to high risk as stoma is the only open airway w/ difficult intubation due to severe takeoff of stoma
-Feeling well this AM, no complaints overnight.
-Now plan is for antiarrhythmic drug therapy with amiodarone which has been loading.
-Continue on amiodarone 400mg TID while admitted. 2.0g load thus far, prior to AM dose 11/25.
-Remains in rate controlled atrial flutter. Metoprolol on hold.
-Planned for CV today, 11/25. Remains NPO.
-Continue Eliquis 5mg BID.
-K and mag stable. TSH 3.94.
-Following initiation of amiodarone, recommend patient to obtain PFTs and an eye exam. LFTs wnl.
-Follow up arranged.
HPI:Mr. Shin is a very pleasant 83-year-old male with a past medical history significant for laryngeal carcinoma status post laryngectomy and tracheostomy with chemotherapy and radiation with chronic dysphagia/swallowing issues, carotid artery
disease, CVA 2019, peripheral vascular disease, hyperlipidemia, chronic pain syndrome, COPD is former tobacco user, hypothyroidism status post partial thyroidectomy, GERD, persistent atrial fibrillation who initially presented for elective pulmonary
vein isolation however due to concern by anesthesia regarding airway, procedure was deferred and plan for amiodarone drug admission for jainism and maintenance of sinus rhythm. Patient reports that he has not missed any doses of his oral
anticoagulation in the last 30 days and notes that he is did not take his Eliquis this morning as was instructed but did receive it in the holding area after noticed that the procedure was canceled. Patient denies any chest pain, shortness of
breath, lightheadedness, dizziness, near-syncope, syncope, PND, orthopnea, edema, or weakness. Uses a speech device due to his open trachea stoma.
Progress Note - Rim Technician
Subjective
Date of Service: November 26, 2023
No complaints. Feeling well.
Objective
Labs:
11/26/23 04:27
11/26/23 04:27
Labs
Hgb 12.1 g/dL (13.0-18.0) L 11/26/23 04:27
Hct 35.9 % (39.0-52.0) L 11/26/23 04:27
Plt Count 186 10^3/uL (130-400) 11/26/23 04:27
PT 14.1 Sec (11.4-14.6) 11/08/23 13:37
INR 1.11 11/08/23 13:37
Sodium 135 mmol/L (135-145) 11/26/23 04:27
Potassium 4.6 mmol/L (3.5-5.1) 11/26/23 04:27
BUN 16 mg/dl (9-20) 11/26/23 04:27
Creatinine 0.9 mg/dL (0.7-1.3) 11/26/23 04:27
Glucose 104 mg/dl (70-99) H 11/26/23 04:27
Vital Signs and I&O:
Vital Signs
Temp Pulse Resp BP Pulse Ox
97.9 F 72 18 102/74 93
11/26/23 04:14 11/26/23 07:25 11/26/23 07:25 11/26/23 04:15 11/26/23 07:25
Vital Signs
Temp Pulse Resp BP Pulse Ox
97.9 F 72 18 102/74 93
11/26/23 04:14 11/26/23 07:25 11/26/23 07:25 11/26/23 04:15 11/26/23 07:25
Intake & Output
11/24/23 11/25/23 11/26/23 11/27/23
06:59 06:59 06:59 06:59
Intake Total 480 / 480
Output Total 400 / 400
Balance -400 / -400 480 / 480
Physical Exam
Physical Exam
GEN: No distress, awake, alert, oriented x3
HEENT: anicteric, mmm, tracheotomy stoma open
LUNGS: CTA b /l, no wheezes/rales
CV: Irreg, S1/S2, no murmur
EXT: No clubbing, cyanosis, or edema
NEURO: Gross non-focal
SKIN: Warm, dry, no rash
[2023-11-26] MEDS: ELIQUIS 5 MG PO ×2 (08:37→19:47)
--- NOTE | 2023-11-26 09:00 | PTCARENOTE ---
RN relayed to patient that lab technician will be coming to pick him up soon, RN offered education and reviewed meds with pt in beginning of shift. Plan to get an EKG this afternoon and possibly d/c home
[2023-11-26] MEDS: FEOSOL PO (09:06)
[2023-11-26] MEDS: LIPITOR PO (09:07)
[2023-11-26] MEDS: TYLENOL PO (09:07)
[2023-11-26] MEDS: ROBITUSSIN PO (09:07)
[2023-11-26] MEDS: THERAGRAN PO (09:08)
--- NOTE | 2023-11-26 09:48 | ITS.CL.CARDI ---
Bias Binding Cutter - Cardioversion
Cardioversion
Procedure Report:
Date of Procedure:
Procedure: Cardioversion
Indication: Symptomatic atrial fibrillation
Performing Physician: Eh Anguiano MD
Technique: The patient was brought to the holding area. Signed informed consent was obtained. A time out was called and performed. The patient was anesthetized by the anesthesia service. Anticoagulation status was reviewed and appropriate. R2 pads
were placed anteriorly and posteriorly. A 200 J synchronized biphasic shock restored normal sinus rhythm with sinus bradycardia. There were no complications.
Conclusion: Uncomplicated cardioversion from atrial fibrillation to sinus bradycardia.
Recommendation: Routine post cardioversion care. Continue longwall foreman anticoagulation.
[2023-11-26] MEDS: PACERONE PO (10:11)
[2023-11-26] MEDS: ROBITUSSIN 400 MG PO ×3 (11:02→22:32)
--- NOTE | 2023-11-26 12:03 | CM ---
CM following for DC planning needs.
Met w/ patient, spouse at bedside.
Pt. reports that he is feeling well post Cardioversion. He is anticipating DC today and offers no concerns or needs.
Plan is for home, no needs.
--- NOTE | 2023-11-26 14:12 | W.PN.HOSP.TC ---
Today's Communication/Plan
-
watch tele
likely DC tomorrow if cleared by cards
Assessment / Plan
Assessment / Plan
Assessment:
A-flutter/Afib
- Aborted atrial ablation scheduled 11/24/23
- s/p DCCV 11/24
- Amio as per Cards; monitor tele
- BB on hold
- continue Eliquis
- watch K, Mag
Laryngeal carcinoma status post laryngectomy/tracheostomy 1995
- Dr. Orta
HX of Thyroidectomy with Hypothyroidism
- continue levothyroxine
COPD
Former smoker [id number], quit 1992
Chronic recurrent hyponatremia
Recurrent bronchitis/PNA
Recurrent sinusitis s/p Sinus surgery 2007
Chronic pain disorder
- opiate dependance on Tramadol
Hyperlipidemia
- Statin
Bilateral carotid stenosis s/p R ICA and status post LICA stent-HUP 2007
Right subclavian stenosis
Insomnia - on Ambien
Right retinal vein thrombosis 2013
PAD
GERD
Trigger fingers left hand
L shoulder prosthesis
Shingles 2004
Gilbert's syndrome
Vitamin D deficiency
History of Lyme disease
Lumbar stenosis s/p Multiple back injections
DVT ppx: Eliquis
Code: Full
Anticipated Discharge: Within 24 hours
Subjective/Interval History
-
Date of Service: November 26, 2023
denies any new complaints
s/p DCCV to confucianism to sinus
Objective Data
-
Labs:
Laboratory Results
11/26/23
04:27
WBC 5.9
Hgb 12.1 L
Hct 35.9 L
Plt Count 186
Sodium 135
Potassium 4.6
Chloride 100
Carbon Dioxide 24
BUN 16
Creatinine 0.9
Glucose 104 H
Calcium 9.1
Vital Signs:
Vital Signs
Temp Pulse Resp BP Pulse Ox
97.9 F 57 20 134/92 97
11/26/23 11:11 11/26/23 10:23 11/26/23 11:11 11/26/23 08:39 11/26/23 11:11
I&O
11/25/23 11/26/23 11/27/23
06:59 06:59 06:59
Intake Total 480 / 480
Output Total 400 / 400
Balance -400 / -400 480 / 480
Physical Exam
-
General: No Apparent Distress
HEENT: Normocephalic and Atraumatic
Respiratory: Negative Wheezes
Cardiac: Regular Rhythm and S1/S2
GI: Soft and Nontender
Musculoskeletal: No Edema
Neuro: AO x 3
Psych: Calm
Data Reviewed
-
Total Time Spent with Patient (in minutes): 41
Labs: Labs Reviewed by me
[2023-11-26] MEDS: LIDOCAINE 4% PATCH 1 PATCH TOPICAL (16:20)
--- NOTE | 2023-11-26 19:39 | PTCARENOTE ---
Pt had a cardioversion to sinus rhythm with prolonged first degree AV block, plan to monitor overnight. Pt given lidocaine patch for neck pain.
[2023-11-26] MEDS: TYLENOL 650 MG PO (19:47)
--- NOTE | 2023-11-26 21:46 | PTCARENOTE ---
AOX3. Assessment noted as documented. Tele- SR w/ 1st deg HB. HR 40-60s. Offers no c/o at this time. Pt ambulating around room w/ steady gait.
[2023-11-26] MEDS: AMBIEN 10 MG PO (22:32)
[2023-11-27 04:13] VITALS: BP 121/85
[2023-11-27] MEDS: ULTRAM 50 MG PO ×2 (04:21→11:16)
[2023-11-27] MEDS: SYNTHROID 100 MCG PO (04:21)
[2023-11-27 04:57] LABS: % Basophils 0.2 % (0-2); % Eosinophils 3.2 % (0-6); % Immature Granulocytes 0.2 % (0-0.5); % Lymphocytes 15.9 % (20.5-51.1); % Monocytes 8.7 % (1.7-9.3); % Neutrophils 71.8 % (42.2-75.2); Absolute Eosinophils 0.2 10^3/uL (0-0.7); Absolute Lymphocytes 0.8 10^3/uL (1.2-3.4); Absolute Monocytes 0.4 10^3/uL (0.1-0.6); Absolute Neutrophils 3.4 10^3/uL (1.4-6.5); Hemoglobin 11.2 g/dL (13.0-18.0); Mean Corpuscular Hgb 32.4 pg (27.0-31.0); Mean Corpuscular Volume 92.5 fL (80.0-94.0); Mean Platelet Volume 9.7 fL (7.4-10.4); Nucleated Red Blood Cells % 0 % (-); Platelet Count 172 10^3/uL (130-400); Red Blood Cell Count 3.46 10^6/uL (4.70-6.10); White Blood Cell Count 4.7 10^3/uL (4.8-10.8)
[2023-11-27 05:29] LABS: Blood Urea Nitrogen 16 mg/dl (9-20); Carbon Dioxide 24 mmol/L (22-30); Chloride 103 mmol/L (98-107); Estimated Creatinine Clearance 50 ml/min; Glucose 102 mg/dl (70-99); Potassium 4.7 mmol/L (3.5-5.1); Sodium 133 mmol/L (135-145); eGFR > 60.00
[2023-11-27 06:59] VITALS: BP 120/95
[2023-11-27] MEDS: VENTOLIN NEBULES 2.5 MG INH (07:28)
[2023-11-27] MEDS: FEOSOL 325 MG PO (07:53)
[2023-11-27] MEDS: ELIQUIS 5 MG PO (07:53)
[2023-11-27] MEDS: PACERONE 200 MG PO (07:54)
[2023-11-27] MEDS: LIPITOR 80 MG PO (07:54)
[2023-11-27] MEDS: LIDOCAINE 4% PATCH 1 PATCH TOPICAL (07:54)
[2023-11-27] MEDS: ROBITUSSIN 400 MG PO ×2 (07:55→13:50)
[2023-11-27] MEDS: THERAGRAN 1 TABLET PO (07:55)
[2023-11-27] MEDS: TYLENOL 650 MG PO (07:56)
[2023-11-27] MEDS: VITAMIN D3 (cholecalciferol) 125 MCG PO (07:57)
--- NOTE | 2023-11-27 08:22 | W.PN.CARDCBS ---
Addendum entered and electronically signed by Moe Dunham MD 11/27/23 09:13:
patient seen and examined
agree with SYDNEE French's notes and assessment
agree with SYDNEE French's plan
exam:
tele noted: 1:1 AV conduction and occasional sinus pause 2-2.5 seconds overnight without symptom and increase in heart rate during waking hours, occasional mobitz 1 type 2 AV block
ent exam chronic
cor regular no m
lungs clear
abd soft nt nd
no ext edema
aao x3
non focal neurologically
Nuclear Equipment Test Engineer: Dr. Day
Impression:
Persistent atrial fibrillation
Typical atrial flutter
Chronic Eliquis anticoagulation
Hypertension
Hypercholesterolemia
h/o CVA 05/2020
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
PVD
COPD
Hypothyroidism
GERD
Echo 06/25/2023: EF 55-60%, trace-mild MR, aortic sclerosis without stenosis, sinus of Valsalva 3.7cm, sinotubular junction 3.5cm, proximal ascending aorta 3.4cm
Plan:
-Presented for planned PVI 11/24/23, however procedure was cancelled by anesthesia due to high risk as stoma is the only open airway w/ difficult intubation due to severe takeoff of stoma
-was placed on amiodarone 400mg TID and was noted to have bradycardia s/p CV to SR 11/25. amio held 11/25. remains in SR with 1st degree av block, several pauses of less than 2.5 seconds overnight. will resume amio at lower dose of 200mg daily
-Continue Eliquis 5mg BID.
-Following initiation of amiodarone, recommend patient to obtain PFTs and an eye exam. LFTs wnl. TSH 3.94.
-OP follow up arranged.
-ambulate
-for possible DC to home later today from cardiac standpoint pending HR trends
-he was able to tolerate propofol anesthesia for CV so could be considered for propofol/TIVA as outpt for PVI or pacing
-d/w nursing
-outpt follow up with Dr. Segura and Dr. Day
-no objection to discharge
Original Note:
Today's Communication / Plan
-
resume amio at lower dose of 200mg daily
follow HR trends on tele
continue eliquis
OP cardiac follow up arranged
Impression / Plan
-
PCP:Dr. Yao Nguyen
Nuclear Equipment Test Engineer: Dr. Day
Impression:
Persistent atrial fibrillation
Typical atrial flutter
Chronic Eliquis anticoagulation
Hypertension
Hypercholesterolemia
h/o CVA 05/2020
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
PVD
COPD
Hypothyroidism
GERD
Echo 06/25/2023: EF 55-60%, trace-mild MR, aortic sclerosis without stenosis, sinus of Valsalva 3.7cm, sinotubular junction 3.5cm, proximal ascending aorta 3.4cm
Plan:
-Presented for planned PVI 11/24/23, however procedure was cancelled by anesthesia due to high risk as stoma is the only open airway w/ difficult intubation due to severe takeoff of stoma
-was placed on amiodarone 400mg TID and was noted to have bradycardia s/p CV to SR 11/25. amio held 11/25. remains in SR with 1st degree av block, several pauses of less than 2.5 seconds overnight. will resume amio at lower dose of 200mg daily and
follow
-Continue Eliquis 5mg BID.
-Following initiation of amiodarone, recommend patient to obtain PFTs and an eye exam. LFTs wnl. TSH 3.94.
-OP follow up arranged.
-ambulate
-for possible DC to home later today from cardiac standpoint pending HR trends
-d/w nursing
HPI:Mr. Shin is a very pleasant 83-year-old male with a past medical history significant for laryngeal carcinoma status post laryngectomy and tracheostomy with chemotherapy and radiation with chronic dysphagia/swallowing issues, carotid artery
disease, CVA 2020, peripheral vascular disease, hyperlipidemia, chronic pain syndrome, COPD is former tobacco user, hypothyroidism status post partial thyroidectomy, GERD, persistent atrial fibrillation who initially presented for elective pulmonary
vein isolation however due to concern by anesthesia regarding airway, procedure was deferred and plan for amiodarone drug admission for evangelical and maintenance of sinus rhythm. Patient reports that he has not missed any doses of his oral
anticoagulation in the last 30 days and notes that he is did not take his Eliquis this morning as was instructed but did receive it in the holding area after noticed that the procedure was canceled. Patient denies any chest pain, shortness of
breath, lightheadedness, dizziness, near-syncope, syncope, PND, orthopnea, edema, or weakness. Uses a speech device due to his open trachea stoma.
Progress Note - Nuclear Equipment Test Engineer
Subjective
Date of Service: November 27, 2023
no issues overnight noted
Objective
Labs:
11/27/23 04:20
11/27/23 04:19
Labs
Hgb 11.2 g/dL (13.0-18.0) L 11/27/23 04:20
Hct 32.0 % (39.0-52.0) L 11/27/23 04:20
Plt Count 172 10^3/uL (130-400) 11/27/23 04:20
PT 14.1 Sec (11.4-14.6) 11/08/23 13:37
INR 1.11 11/08/23 13:37
Sodium 133 mmol/L (135-145) L 11/27/23 04:19
Potassium 4.7 mmol/L (3.5-5.1) 11/27/23 04:19
BUN 16 mg/dl (9-20) 11/27/23 04:19
Creatinine 0.9 mg/dL (0.7-1.3) 11/27/23 04:19
Glucose 102 mg/dl (70-99) H 11/27/23 04:19
Vital Signs and I&O:
Vital Signs
Temp Pulse Resp BP Pulse Ox
98.3 F 58 16 121/85 98
11/27/23 06:59 11/27/23 07:30 11/27/23 07:30 11/27/23 04:13 11/27/23 07:30
Vital Signs
Temp Pulse Resp BP Pulse Ox
98.3 F 58 16 121/85 98
11/27/23 06:59 11/27/23 07:30 11/27/23 07:30 11/27/23 04:13 11/27/23 07:30
Intake & Output
11/25/23 11/26/23 11/27/23 11/28/23
07:59 07:59 07:59 07:59
Intake Total 480 / 480 120 / 120
Output Total 400 / 400 240 / 240
Balance -400 / -400 480 / 480 -120 / -120
Physical Exam
Physical Exam
GEN: No distress, awake, alert, oriented x3
HEENT: supple, anicteric, mmm, eomi
LUNGS: CTA B/L, no wheezes/rales
CV: Reg, S1/S2, no murmur
ABD: soft, BS+, NT/ND
EXT: No cyanosis, clubbing, edema
NEURO: Gross non-focal
SKIN: Warm, pink, dry. No rash
[2023-11-27 11:44] VITALS: BP 132/116
[2023-11-27 11:46] VITALS: BP 96/63
--- NOTE | 2023-11-27 13:15 | W.PN.HOSP.TC ---
Today's Communication/Plan
-
dc home
Assessment / Plan
Assessment / Plan
Assessment:
A-flutter/Afib
- Aborted atrial ablation scheduled 11/24/23
- s/p DCCV 11/24
- Amio resumed today; doing well
- BB on hold
- continue Eliquis
- watch K, Mag
Laryngeal carcinoma status post laryngectomy/tracheostomy 1995
- Dr. Orta
HX of Thyroidectomy with Hypothyroidism
- continue levothyroxine
COPD
Former smoker [id number], quit 1992
Chronic recurrent hyponatremia
Recurrent bronchitis/PNA
Recurrent sinusitis s/p Sinus surgery 2007
Chronic pain disorder
- opiate dependance on Tramadol
Hyperlipidemia
- Statin
Bilateral carotid stenosis s/p R ICA and status post LICA stent-HUP 2007
Right subclavian stenosis
Insomnia - on Ambien
Right retinal vein thrombosis 2013
PAD
GERD
Trigger fingers left hand
L shoulder prosthesis
Shingles 2004
Gilbert's syndrome
Vitamin D deficiency
History of Lyme disease
Lumbar stenosis s/p Multiple back injections
DVT ppx: Eliquis
Code: Full
More than 30 minutes spent in discharge including
Final examination of the patient
Summarizing hospital stay
Instructions for continuing care to all relevant caregivers
Preparation of discharge records, prescriptions, and referral forms
Total time spent (in minutes):41
Anticipated Discharge: Today
Subjective/Interval History
-
Date of Service: November 27, 2023
denies any new complaints at present
cleared for DC by cards
Objective Data
-
Labs:
Laboratory Results
11/27/23 11/27/23
04:19 04:20
WBC 4.7 L
Hgb 11.2 L
Hct 32.0 L
Plt Count 172
Sodium 133 L
Potassium 4.7
Chloride 103
Carbon Dioxide 24
BUN 16
Creatinine 0.9
Glucose 102 H
Calcium 9.0
Vital Signs:
Vital Signs
Temp Pulse Resp BP Pulse Ox
98.2 F 47 16 96/63 94
11/27/23 11:41 11/27/23 12:00 11/27/23 11:41 11/27/23 11:46 11/27/23 11:41
I&O
11/26/23 11/27/23 11/28/23
06:59 06:59 06:59
Intake Total 480 / 480 120 / 120
Output Total 240 / 240
Balance 480 / 480 -120 / -120
Physical Exam
-
General: No Apparent Distress
HEENT: Normocephalic and Atraumatic
Cardiac: Regular Rhythm and S1/S2
GI: Nondistended
Genito-urinary: No Costovertebral Tender
Musculoskeletal: No Edema
Neuro: AO x 3
Hematologic / Lymphatic: No Lymphadenopathy
Psych: Calm
Data Reviewed
-
Total Time Spent with Patient (in minutes): 41
Labs: Labs Reviewed by me
--- NOTE | 2023-11-27 13:18 | PTCARENOTE ---
Pt denies and lightheadedness or dizziness today. His HR was in 40-50's during his nap. While awake 50-70's. Pt offers no complaints.
--- NOTE | 2023-11-27 13:21 | W.DS.TRANS ---
DC Summary - [employer]
-
Discharge Instructions:
Discharge Diagnosis/Procedures Afib s/p Amiodarone load and cardioversion
Diet Low Cholesterol
Activity As tolerated
Bathing Restrictions None
Instructions:
Stand-Alone Forms:
Changes to Home Medications: Yes
Discharge Medications:
DC Medications w/original date entered in [facility]
levothyroxine 100 mcg tablet 100 mcg PO DAILY AT 0700 Thyroid 08/31/14
guaifenesin 400 mg tablet 400 mg PO QID Congestion 12/30/16
tramadol 50 mg tablet 50 mg PO Q6H Pain 06/14/20
atorvastatin 80 mg tablet 80 mg PO DAILY #30 tabs 06/15/20
therapeutic multivitamin 10 ml PO DAILY Supplement 05/20/23
cholecalciferol (vitamin D3) 125 mcg (5,000 unit) tablet (Vitamin D3) 125 mcg PO Q48H Supplement 06/24/23
acetaminophen 325 mg tablet (Tylenol) 650 mg PO BID Pain 08/09/23
ferrous sulfate 325 mg (65 mg iron) tablet (iron) 325 mg PO DAILY Supplement 08/09/23
zolpidem 10 mg tablet (Ambien) 10 mg PO HS Sleep 08/09/23
albuterol sulfate 2.5 mg/3 mL (0.083 %) solution for nebulization 2.5 mg (3 mL) inhalation QID PRN bronchospasm #90 mL 08/13/23
apixaban 5 mg tablet (Eliquis) 5 mg PO BID Pain #60 tabs 08/13/23
docusate sodium 100 mg capsule (Colace) 100 mg PO PRN PRN constipation 08/26/23
diazepam 10 mg tablet (Valium) 10 mg PO PRN PRN Anxiety 11/03/23
amiodarone 200 mg tablet (Pacerone) 200 mg PO DAILY #30 tabs 11/27/23
Home Medication Changes
Amio added, BB stopped
Pending Results: No
Total time spent discharging patient (in min): 41
[2023-11-27] MEDS: VENTOLIN NEBULES INH (14:02)
== END 2023-11-27 14:27 | disposition home or self-care (01) | DRG 309 ==
LOC: IVU 15:01
PROVIDERS: Clinical Nurse Specialist Family Health; Internal Medicine Cardiovascular Disease; ADMITTING PHYSICIAN Internal Medicine Cardiovascular Disease; ATTENDING PHYSICIAN Internal Medicine; CONSULT PHYSICIAN Internal Medicine; FAMILY PHYSICIAN Family Medicine
PROC: 5A2204Z Restoration of Cardiac Rhythm, Single (ICD-10-PCS; 2023-11-26)
DX: I48.19 Other persistent atrial fibrillation (principal); E87.1 Hypo-osmolality and hyponatremia; I10 Essential (primary) hypertension; E78.00 Pure hypercholesterolemia, unspecified; I73.9 Peripheral vascular disease, unspecified; I48.92 Unspecified atrial flutter; I65.23 Occlusion and stenosis of bilateral carotid arteries; J44.9 Chronic obstructive pulmonary disease, unspecified; I70.8 Atherosclerosis of other arteries; M54.50 Low back pain, unspecified; E55.9 Vitamin D deficiency, unspecified; F40.240 Claustrophobia; E89.0 Postprocedural hypothyroidism; G47.00 Insomnia, unspecified; G89.4 Chronic pain syndrome; K21.9 Gastro-esophageal reflux disease without esophagitis; I44.0 Atrioventricular block, first degree; M19.90 Unspecified osteoarthritis, unspecified site; M48.061 Spinal stenosis, lumbar region without neurogenic claudication; E80.4 Gilbert syndrome; M54.9 Dorsalgia, unspecified; Z96.612 Presence of left artificial shoulder joint; Z85.21 Personal history of malignant neoplasm of larynx; Z87.891 Personal history of nicotine dependence; Z87.01 Personal history of pneumonia (recurrent); Z88.1 Allergy status to other antibiotic agents; Z88.0 Allergy status to penicillin; Z79.890 Hormone replacement therapy; Z79.01 Long term (current) use of anticoagulants
CPT/HCPCS: 36415; 75572; 80048; 80053; 83735; 84443; 85025; 85610; 86850; 86900; 86901; 92960; 93005; 94640; 97162; 97165; Q9967

== ENCOUNTER → 2024-05-10 10:46 | Outpatient (REF) | payer OTHER, SELFPAY | LOC: RAD 10:46 | PROVIDERS: ATTENDING PHYSICIAN Registered Nurse; REFERRING PHYSICIAN Surgery Vascular Surgery | DX: I65.23 Occlusion and stenosis of bilateral carotid arteries (principal) | CPT/HCPCS: 93880 ==

== ENCOUNTER 2024-10-25 10:18 | Emergency (ER) | payer OTHER, SELFPAY ==
[2024-10-25 10:31] VITALS: BP 133/69
[2024-10-25 10:44] VITALS: BMI 25.4
[2024-10-25 10:48] VITALS: BP 144/82
[2024-10-25 11:00] VITALS: BP 118/66
[2024-10-25] MEDS: PERCOCET 5/325 1 TABLET PO (11:17)
--- NOTE | 2024-10-25 11:43 | ED.MUSCINJ ---
HPI-Injury
General
Chief Complaint: Fall
Source: patient and spouse
Exam Limitations: none
Time Seen by Provider: 10/25/24 11:06
Nursing documentation reviewed up to this point in time: agreed with
History of Present Illness-Injury
Is this injury a work related problem?: No
Is pt an associate of [facility]/[place]?: No
Initial Injury comments:
83-year-old male on [place] presents with left knee pain slip and fall last night struck his knee on the ground also struck his head he has a mild headache no numbness or tingling no arm or leg weakness he has trouble fully bending his left knee
possibly struck his bilateral arms but has no pain on range of motion no pain in his right knee has no vomiting no chest pain or shortness of breath
Past History
Past History
ED Past Medical History: Cancer (Laryngeal cancer status post laryngectomy), COPD, Hypercholesterolemia, Hypothyroidism and Other (Carotid artery disease)
ED Past Surgical History: Other (Laryngectomy with tracheostomy. Carotid stent)
Social History
Tobacco: Former smoker
Alcohol: None
Drug: None
Personal:
Living: with family
Employment: Retired
Family History
Family History: Hypertension
Review of Systems
Review of Systems
All Other Systems: Not applicable
EENT: Reports no symptoms
Respiratory: Reports no symptoms; Denies cough or trouble breathing
Cardiac: Reports no symptoms
ABD/GI: Reports no symptoms
Musculoskeletal: Reports joint pain
Neurological: Reports headache; Denies dizzy, weakness or numbness
Phy Exam
Physical Exam
Physical Exam:
Physical Exam
General: Chronically ill-appearing male nontoxic cooperative
Neck: Stoma speaking with the [place] valve
Heart: s1/s2 regular rate and rhythm, no murmur. equal radial pulses.
Lungs: no acute respiratory distress. clear bilaterally
Abdomen: Nontender
Neuro: alert and oriented. no focal neurological deficits
Skin: no rash
Psychiatric: well kept. interactive and cooperative
Extremities: Mild tenderness left posterior knee, pain with flexion no bony deformity appreciated no obvious ligamentous injury
Injury Course
Orders/Labs/Results
Orders:
Orders
10/25/24 11:13
CT Cervical Spine W/o Iv Contr Urgent
Comment:
Reason For Exam: fall elquis
CT Head W/o Iv Contrast Urgent
Comment:
Reason For Exam: fall elquis
Knee, Right 4 or More Views [CR Knee- Right 4 Or More View*] Urgent
Comment:
Reason For Exam: fall
10/25/24 11:14
Daniel Wrap Left-Treatment ONCE
Oxycodone/Acetaminophen [Percocet 5/325] 1 tablet PO NOW STA
MDM/Problems Addressed
Differential Diagnosis Includes:
Knee injury knee ligamentous injury knee fracture knee contusion intracerebral hemorrhage doubt C-spine injury
MDM/Problems Addressed:
Fall
Chronic conditions affecting care:
Anticoagulant
Acute Exacerbation and/or Progression of Chronic Illness:
Anticoagulated
*Radiology
Radiology exam reviewed: radiology read reviewed
*Pulse Oximetry
Patient hypoxic: no
*Sample Preparation Supervisor Interpretation
Rate: Sample Preparation Supervisor- N/A
*Critical Care Note
Total Time (30-74mins, 75-104mins- exclusive of procedures): Not Applicable
Update Note
Update Note:
1:10 PM images noted reports noted
ED Attending Note
-
Portions of this chart may have been created with voice recognition software.� Occasional wrong word or��sound alike� substitutions may have occurred due to the inherent limitations of voice recognition software.
Discharge Plan
Departure
Patient Disposition: Home (Routine Discharge)
Date of Disposition: 10/25/24
Time of Disposition: 13:11
Patient with high blood pressure during this ER visit?: No
Condition: Good
Discharge Problem:
Fall
Instructions: Head Injury in Adults (DC), Contusion (DC), Preventing falls in adults
Prescriptions:
New
oxycodone-acetaminophen [Percocet] 5-325 mg tablet
1 tab PO Q6HPRN PRN (Reason: pain) Qty: 14 0RF
No Action
levothyroxine 100 MCG tablet
100 mcg PO DAILY AT 0700
guaifenesin 400 MG tablet
400 mg PO QID
tramadol 50 MG tablet
50 mg PO Q6H
Patient Comments:
06/24/23 Filled on 05/16/23 #[id number]
atorvastatin 80 MG tablet
80 mg PO DAILY Qty: 30 0RF
therapeutic multivitamin Liquid
10 ml PO DAILY
cholecalciferol (vitamin D3) [Vitamin D3] 125 mcg (5,000 unit) Tablet
125 mcg PO Q48H
acetaminophen [Tylenol] 325 mg Tablet
650 mg PO BID
ferrous sulfate [iron] 325 mg (65 mg iron) Tablet
325 mg PO DAILY
zolpidem [Ambien] 10 mg Tablet
10 mg PO HS
Eliquis 5 mg tablet
5 mg PO BID Qty: 60 0RF
albuterol sulfate 2.5 mg /3 mL (0.083 %) solution for nebulization
2.5 mg inhalation QID PRN (Reason: bronchospasm) Qty: 90 0RF
docusate sodium [Colace] 100 mg Capsule
100 mg PO PRN PRN (Reason: constipation)
diazepam [Valium] 10 mg Tablet
10 mg PO PRN PRN (Reason: Anxiety)
amiodarone [Pacerone] 200 mg Tablet
200 mg PO DAILY Qty: 30 1RF
Referrals:
Eloy Morris MD [Active] - Next open appointment
Yao Nguyen Jr., DO [Family Provider] - Next open appointment
Activity Restrictions/Additional Instructions:
Use Daniel wrap, on your left knee, ice to areas that hurt for the next day or 2,
Interventions
Interventions:
*Risk Screen - Suicide Last Done: 10/25/24 10:31
*General Assessment Last Done: 10/25/24 10:44
*Neglect/Abuse Screening Last Done: 10/25/24 10:31
*ED- Fall Risk Assessment Last Done: 10/25/24 10:44
*ED COVID-19 Vaccine History Last Done: 10/25/24 10:44
ED-Musculoskeletal Assessment Last Done: 10/25/24 10:44
ED- Neurological Assessment Last Done: 10/25/24 10:44
ED-Skin Assessment Last Done: 10/25/24 10:44
Discharge Date and Time
Print Language: [place]ET[place]ESE
--- NOTE | 2024-10-25 11:56 | EDRN ---
Patient ambulated to the restroom and back in bed and heading to CT
== END 2024-10-25 14:15 | disposition home or self-care (01) ==
LOC: EMR 10:18
PROVIDERS: EMERGENCY PHYSICIAN Emergency Medicine; FAMILY PHYSICIAN Family Medicine
DX: S09.90XA Unspecified injury of head, initial encounter (principal); W01.0XXA Fall on same level from slipping, tripping and stumbling without subsequent striking against object, initial encounter; J44.9 Chronic obstructive pulmonary disease, unspecified; E78.00 Pure hypercholesterolemia, unspecified; E03.9 Hypothyroidism, unspecified; Z79.01 Long term (current) use of anticoagulants; Z82.49 Family history of ischemic heart disease and other diseases of the circulatory system; Z85.21 Personal history of malignant neoplasm of larynx; Z87.891 Personal history of nicotine dependence
CPT/HCPCS: 99284; 70450; 72125; 73564

== ENCOUNTER → 2024-11-17 10:53 | Outpatient (REF) | payer OTHER, SELFPAY | LOC: RAD 10:53 | PROVIDERS: ATTENDING PHYSICIAN Registered Nurse; FAMILY PHYSICIAN Family Medicine | DX: I65.23 Occlusion and stenosis of bilateral carotid arteries (principal) | CPT/HCPCS: 93880 ==

== ENCOUNTER → 2025-05-16 12:33 | Outpatient (REF) | payer OTHER, SELFPAY | LOC: RAD 12:33 | PROVIDERS: ATTENDING PHYSICIAN Nurse Practitioner Adult Health; FAMILY PHYSICIAN Family Medicine | DX: R06.02 Shortness of breath (principal) | CPT/HCPCS: 71046 ==

== ENCOUNTER → 2025-06-18 11:57 | Outpatient (REF) | payer OTHER, SELFPAY | LOC: RAD 11:57 | PROVIDERS: ATTENDING PHYSICIAN Podiatrist Foot & Ankle Surgery; FAMILY PHYSICIAN Family Medicine | DX: L97.511 Non-pressure chronic ulcer of other part of right foot limited to breakdown of skin (principal); M20.41 Other hammer toe(s) (acquired), right foot | CPT/HCPCS: 73630 ==